=== PATIENT | male | born 1935 | race Caucasian/White ===

== ENCOUNTER 2023-04-21 10:39 | Emergency (ER) | payer MEDICARE ==
[~2023-04-21] VITALS: Ht 185.4 cm; Wt 74.8 kg
[2023-04-21 10:47] VITALS: BP 173/78
[2023-04-21] MEDS ORDERED: Robaxin750 MG PO (11:58)
[2023-04-21] MEDS ORDERED: IBUP800 PO (11:58)
== END 2023-04-21 12:08 | disposition home or self-care (01) ==
LOC: ER 10:39
DX: M54.50 Low back pain, unspecified (principal); M25.572 Pain in left ankle and joints of left foot
CPT/HCPCS: 96372; 99283-25; A9270; J1885

== ENCOUNTER 2024-09-01 13:22 | Emergency (ER) | payer MEDICARE ==
[~2024-09-01] VITALS: Ht 180.3 cm; Wt 93.0 kg
[~2024-09-01 13:22] MED LIST: IBUP800 PO; Robaxin750 MG PO
[2024-09-01 13:43] VITALS: BP 162/79
[2024-09-01 14:16] LABS: BASOPHILS ABSOLUTE AUTO 0.03 K/mm3 (0.00-0.23); BASOPHILS PERCENT AUTO 0 % (0-2); EOSINOPHILS ABSOLUTE AUTO 0.43 K/mm3 (0.00-0.68); EOSINOPHILS PERCENT AUTO 5 % (0-6); Hematocrit 43.3 % (37.0-53.0); Hemoglobin 14.7 g/dL (13.5-17.5); IMMATURE GRAN ABSOLUTE AUTO 0.01 K/mm3 (0.00-0.10); IMMATURE GRAN PERCENT AUTO 0 % (0-1); LYMPHOCYTES ABSOLUTE AUTO 2.66 K/mm3 (0.84-5.20); LYMPHOCYTES PERCENT AUTO 33 % (21-46); MONOCYTES ABSOLUTE AUTO 1.16 K/mm3 (0.16-1.47); MONOCYTES PERCENT AUTO 14 % (4-13); Mean Corpuscular HGB 35.3 pg (26.0-34.0); Mean Corpuscular HGB Conc 33.9 g/dL (31.5-36.5); Mean Corpuscular Volume 104 fL (80-100); NEUTROPHILS ABSOLUTE AUTO 3.75 K/mm3 (1.96-9.15); NEUTROPHILS PERCENT AUTO 47 % (41-73); Platelet Count 121 K/mm3 (150-400); RDW Coefficient Variation 14.1 % (11.7-14.2); RDW Standard Deviation 53.7 fL (35.1-46.3); Red Blood Cell Count 4.17 M/mm3 (4.30-5.90); White Blood Cell Count 8.04 K/mm3 (4.00-11.30)
[2024-09-01 15:18] LABS: Albumin, Blood 3.6 g/dL (3.4-5.0); Albumin/Globulin Ratio 1.2 (0.8-1.8); Bilirubin, Total 0.6 mg/dL (0.1-1.0); Bun/Creatinine Ratio 26.1 (12.0-20.0); Calcium, Blood 9.4 mg/dL (8.5-10.1); Creatinine, Blood 0.92 mg/dL (0.60-1.20); Potassium, Blood 3.9 mmol/L (3.5-5.5); Total Protein, Blood 6.6 g/dL (6.4-8.2)
[2024-09-01] MEDS ORDERED: Cyclobenzaprine5 MG PO (15:57)
[2024-09-01] MEDS ORDERED: MOBIC15 MG PO (15:57)
== END 2024-09-01 16:12 | disposition home or self-care (01) ==
LOC: ER 13:22
PROVIDERS: Student in an Organized Health Care Education/Training Program
DX: M54.16 Radiculopathy, lumbar region (principal); I10 Essential (primary) hypertension; Z79.899 Other long term (current) drug therapy
CPT/HCPCS: 73502; 80053; 85025; 93971; 99284-25

== ENCOUNTER 2024-10-03 12:34 | Emergency (ER) | payer MEDICARE ==
[~2024-10-03] VITALS: Ht 180.3 cm; Wt 81.7 kg
[~2024-10-03 12:34] MED LIST changes: +Cyclobenzaprine5 MG PO; +MOBIC15 MG PO
[2024-10-03 12:52] VITALS: BP 146/81
[2024-10-03] MEDS ORDERED: Diazepam 5 MG Tab PO ONE (13:00)
[2024-10-03] MEDS ORDERED: Ketorolac Tromethamine 30mg Vial IM ONE (13:00)
[2024-10-03] MEDS ORDERED: HYDROmorphone HCl/Pf 1MG SYR IM ONE (15:15)
[2024-10-03] MEDS ORDERED: Percocet 5-3251 EACH PO (15:22)
== END 2024-10-03 15:40 | disposition home or self-care (01) ==
LOC: ER 12:34
DX: M54.16 Radiculopathy, lumbar region (principal); I10 Essential (primary) hypertension; I25.2 Old myocardial infarction; E78.00 Pure hypercholesterolemia, unspecified; Z79.891 Long term (current) use of opiate analgesic; Z79.1 Long term (current) use of non-steroidal anti-inflammatories (NSAID); Z59.89 Other problems related to housing and economic circumstances
CPT/HCPCS: 73502; 96372; 99283-25; A9270; J1171; J1885